=== PATIENT | female | born 1995 | race African-American/Black ===

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

== ENCOUNTER 2017-10-12 15:34 | Emergency (ER) | payer OTHER ==
[~2017-10-12] VITALS: Ht 160 cm; Wt 84.0 kg
[2017-10-12 15:40] VITALS: BP 138/84
--- NOTE | 2017-10-12 15:50 | NUR ---
22/F BIB SELF C/O LOWER ABDOMINAL PAIN & LOWER BACK DISCOMFORT 04/30 X3D, HEADACHE 8/10 TODAY.DENIES N/V/D; SKIN IS PINK/WARM/DRY; AAOX4 WITH EVEN AND STEADY GAIT; LUNGS CLEAR BL; HR EVEN AND REGULAR; PT DENIES ANY FEVER, CP, SOB, OR COUGH AT THIS TIME; PATIENT STATES PAIN OF 8/10 AT THIS TIME; VSS; PATIENT POSITIONED FOR COMFORT; HOB ELEVATED; BEDRAILS UP X2; BED DOWN. ER MD MADE AWARE OF PT STATUS.
--- NOTE | 2017-10-12 15:54 | NUR ---
Patient being evaluated by DR JEFF at bedside.
[2017-10-12] MEDS ORDERED: NACL 0.9% 1,000 ML IV SCH (16:00)
[2017-10-12] MEDS ORDERED: MORPHINE SULFATE 4 MG/ML SYR IVP ONE (16:00)
[2017-10-12] MEDS ORDERED: KETOROLAC 30 MG/ML VIAL IVP ONE (16:00)
[2017-10-12] MEDS ORDERED: ONDANSETRON 4 MG/2 ML VIAL IVP ONE (16:00)
[2017-10-12] MEDS ORDERED: FAMOTIDINE 20 MG/2 ML VIAL IVP ONE (16:00)
[2017-10-12 16:22] LABS: EOSINOPHILS # (AUTO) 0.1 K/uL (0-0.4); HEMATOCRIT 37.7 % (36-48); HEMOGLOBIN 12.5 g/dL (12.0-16.0); MEAN CORPUSCULAR HEMOGLOBIN 29 pg (27-31); MEAN CORPUSCULAR HGB CONC 33 g/dL (33-37); WHITE BLOOD COUNT (AUTO) 5.9 K/uL (4.5-11.0)
[2017-10-12 16:25] LABS: APPEARANCE,URINE CLEAR (CLEAR); BILIRUBIN,URINE NEGATIVE (NEGATIVE); BLOOD, URINE TRACE-I (NEGATIVE); COLOR,URINE YELLOW (YELLOW); LEUKOCYTE ESTERASE ,URINE NEGATIVE (NEGATIVE); NITRITE, URINE NEGATIVE (NEGATIVE); PH,URINE 6.5 (5.0-9.0); UGLUCOSE NEGATIVE (NEGATIVE)
[2017-10-12 16:30] LABS: BASOPHILS # (AUTO) 0.3 K/uL (0.00-0.22); LYMPHOCYTES # (AUTO) 1.4 K/uL (2.5-16.5); MEAN CORPUSCULAR VOLUME 87 fL (80-94); MONOCYTES # (AUTO) 0.4 K/uL (0.8-1.0); NEUTROPHILS # (AUTO) 3.7 K/uL (1.8-7.7); PLATELET COUNT (AUTO) 264 K/uL (140-450); RED BLOOD CELL COUNT(AUTO) 4.31 MIL/uL (4.20-5.40); RED CELL DISTRIBUTION WIDTH 12.3 % (11.6-13.7)
[2017-10-12 16:32] LABS: BASOPHILS % (AUTO) 1.7 % (0.0-2.0); LYMPHOCYTES % (AUTO) 32.4 % (20.5-51.1); MONOCYTES % (AUTO) 5.2 % (1.7-9.3); NEUTROPHILS % (AUTO) 59.7 % (42.2-75.2)
[2017-10-12 16:46] LABS: RBC,URINE NONE SEEN /HPF (0-5); WBC,URINE 0-5 (RARE) /HPF (0-5)
[2017-10-12 16:59] LABS: POTASSIUM 4.1 mmol/L (3.5-5.1)
[2017-10-12 17:00] LABS: ALBUMIN 3.7 g/dL (3.4-5.0); CARBON DIOXIDE 29.1 mmol/L (21-32); CREATININE 0.7 mg/dL (0.6-1.3); TOTAL BILIRUBIN 0.4 mg/dL (0.0-1.0)
--- NOTE | 2017-10-12 18:29 | NUR ---
Patient discharged with v/s stable. Written and verbal after care instructions given and explained. Patient alert, oriented and verbalized understanding of instructions. Ambulatory with steady gait. All questions addressed prior to discharge. ID band removed. Patient advised to follow up with PMD. Rx of MOTRIN, PEDCID & ZOFRAN given. Patient educated on indication of medication including possible reaction and side effects. Opportunity to ask questions provided and answered.
[2017-10-12 18:30] VITALS: BP 119/71
== END 2017-10-12 18:29 | disposition home or self-care (01) ==
LOC: MED 15:34
DX: N83.201 Unspecified ovarian cyst, right side (principal); R51 Headache
CPT/HCPCS: 36415; 76705; 76856; 80053; 81001; 81025; 82150; 83690; 84703; 85025; 96361; 96374; 96375; 99285; J1885; J2270; J2405; J3490; J7030; Q0092

== ENCOUNTER 2018-03-15 22:00 | Emergency (ER) | payer OTHER ==
[~2018-03-15] VITALS: Ht 160 cm; Wt 89.5 kg
[2018-03-15 22:21] VITALS: BP 135/78
--- NOTE | 2018-03-15 22:24 | NUR ---
TO LOBBY A/W BED, OTTO ERMS NOTED
--- NOTE | 2018-03-15 22:26 | NUR ---
Raymon taylor in [facility] - 03/15/18 at 2246 by CHIN PT TAKEN TO BED 8
--- NOTE | 2018-03-15 23:20 | NUR ---
PT AMBULATED TO ER BED 12
--- NOTE | 2018-03-15 23:25 | NUR ---
23 Y/O F W/C/O LOWER ABD PAIN, WITH PAINFUL URINATION WITH VAG D/C STARTED YESTERDAY WELL SORETHROAT. NO OTHER S/S OF DISTRESS NOTED.
[2018-03-15 23:34] LABS: APPEARANCE,URINE CLOUDY (CLEAR); BILIRUBIN,URINE NEGATIVE (NEGATIVE); BLOOD, URINE 2+ (NEGATIVE); COLOR,URINE YELLOW (YELLOW); LEUKOCYTE ESTERASE ,URINE 2+ (NEGATIVE); NITRITE, URINE NEGATIVE (NEGATIVE); UGLUCOSE NEGATIVE (NEGATIVE)
[2018-03-15 23:50] LABS: RBC,URINE 20-50 /HPF (0-5); WBC,URINE TOO MANY TO COUNT /HPF (0-5)
--- NOTE | 2018-03-16 00:38 | NUR ---
Dr. Winn at bedside for pelvic exam with female [employer] constable Veronika Soriano EMT
[2018-03-16] MEDS ORDERED: metroNIDAZOLE 250 MG TAB PO ONE (00:45)
[2018-03-16] MEDS ORDERED: ACETAMINOPHEN/CODEINE 300/30MG 1 TAB PO ONE (00:45)
[2018-03-16] MEDS ORDERED: cefTRIAXone 250 MG in LIDOCAINE MPF 1% - **ER/OR** 0.9 ML IM ONE (00:45)
[2018-03-16] MEDS ORDERED: AZITHROMYCIN 250 MG TAB PO ONE (00:45)
[2018-03-16] MEDS ORDERED: KETOROLAC 30 MG/ML VIAL IM ONE ×2 (01:55)
[2018-03-16] MEDS ORDERED: KETOROLAC 30 MG/ML VIAL ONE (01:59)
[2018-03-16 02:25] VITALS: BP 126/72
[2018-03-18 15:08] LABS: CHLAMYDIA TRACHOMATIS AMP DNA Negative (Negative)
--- NOTE | 2018-03-20 20:33 | NUR ---
Lab report received of positive GC result. Notified Dr Griffith. No orders received, pt was tx'd here. Called pt and informed her of result and gave her instructions to notify partners and not to have sex with them until 7 days after they've been treated and no sex for her for 7 day after her tx. Pt verbalized understanding.
== END 2018-03-16 02:25 | disposition home or self-care (01) ==
LOC: MED 22:00
DX: N39.0 Urinary tract infection, site not specified (principal); Z20.2 Contact with and (suspected) exposure to infections with a predominantly sexual mode of transmission
CPT/HCPCS: 36415; 81001; 81025; 87086; 87210; 87491; 96372; 99284; J0696; J1885; J2001

== ENCOUNTER 2018-12-06 07:18 | Emergency (ER) | payer OTHER ==
[~2018-12-06] VITALS: Ht 160 cm; Wt 99.8 kg
[2018-12-06 07:36] VITALS: BP 128/77
--- NOTE | 2018-12-06 07:43 | NUR ---
PT AMBULATED TO ER BED 09
--- NOTE | 2018-12-06 07:46 | NUR ---
BIB SELF, AAO X4, C/O SORE THROAT X 2 DAYS, PT STATES 8/10 SORE THROAT PAIN, NON-PRODUCTIVE COUGH. BACK OF THE THROAT APPEARS TO BE REDDENED, WITH WHITE CIRCULAR PATCHES ON THE BACK OF THE THROAT. EVEN AND UNLABORED BREATHING, NO SOB NOTED. BILATERAL LUNGS CLEAR. OXYGEN SATURATION AT 98% ROOM AIR. AFEBRILE. PATIENT POSITIONED FOR COMFORT; HOB ELEVATED; BEDRAILS UP X1; BED DOWN. ER MD MADE AWARE OF PT STATUS. PMH: DENIES
--- NOTE | 2018-12-06 07:46 | NUR ---
Note undone in EDM - 12/06/18 at 0805 by MEDSM BIB SELF C/O OF SORE THROAT X 2 DAYS, PT STATES 8/10 SORE THROAT PAIN, NON PRODUCTIVE COUGHING PATIENT PRESENTS TO ED WITH . PT STATES . DENIES N/V/D; SKIN IS PINK/WARM/DRY; AAOX4 WITH EVEN AND STEADY GAIT; LUNGS CLEAR BL; HR EVEN AND REGULAR; PT DENIES ANY FEVER, CP, SOB, OR COUGH AT THIS TIME; PATIENT STATES PAIN OF 0/10 AT THIS TIME; VSS; PATIENT POSITIONED FOR COMFORT; HOB ELEVATED; BEDRAILS UP X2; BED DOWN. ER MADE AWARE OF PT STATUS.
--- NOTE | 2018-12-06 07:50 | NUR ---
EDMD AT BEDSIDE PERFORMING MSE
[2018-12-06] MEDS ORDERED: CLINDAMYCIN 600 MG/4 ML VIAL IM ONE (07:55)
[2018-12-06] MEDS ORDERED: ALBUTEROL SULFATE/IPRATROPIU 3 ML SOL IH ONE (07:55)
[2018-12-06] MEDS ORDERED: DEXAMETHASONE 10 MG/ML VIAL IM ONE (07:55)
--- NOTE | 2018-12-06 08:20 | NUR ---
FLU SWAB AND URINE COLLECTED
[2018-12-06 09:49] VITALS: BP 120/75
--- NOTE | 2018-12-06 09:49 | NUR ---
Patient discharged with v/s stable. Written and verbal after care instructions given and explained. Patient alert, oriented and verbalized understanding of instructions. Ambulatory with steady gait. All questions addressed prior to discharge. ID band removed. Patient advised to follow up with PMD. Rx of clindamycin and prednisone given. Patient educated on indication of medication including possible reaction and side effects. Opportunity to ask questions provided and answered.
== END 2018-12-06 09:49 | disposition home or self-care (01) ==
LOC: MED 07:18
DX: J03.90 Acute tonsillitis, unspecified (principal)
CPT/HCPCS: 81025; 87804; 94640; 96372; 99283; J1100; J3490; J7620

== ENCOUNTER 2019-07-30 03:55 | Emergency (ER) | payer OTHER ==
[~2019-07-30] VITALS: Ht 160 cm; Wt 104.3 kg
[2019-07-30 03:55] VITALS: BP 138/79
--- NOTE | 2019-07-30 03:55 | NUR ---
TO BED # 04 AMBULATORY
[2019-07-30] MEDS ORDERED: KETOROLAC 30 MG/ML VIAL IM ONE (04:15)
[2019-07-30] MEDS ORDERED: DEXAMETHASONE 10 MG/ML VIAL PO ONE (04:15)
--- NOTE | 2019-07-30 04:15 | NUR ---
24 YO BIB SELF PRESENTS TO ED C/O 04/30 THROAT PAIN, THROAT SWELLING AND BODY ACHES X SINCE YESTERDAY. PT DENIES SOB BUT REPORTS PAINFUL SWALLOWING. PT DENIES FEVER BUT REPORTS CHILLS. DENIES NVD. PMH-- DENIES RX-- DENIES
--- NOTE | 2019-07-30 04:20 | NUR ---
DR. CLAUDIO EVALUATING AT BEDSIDE.
--- NOTE | 2019-07-30 04:30 | NUR ---
FLU/STREP SWABS COLLECTED AND WALKED DOWN TO LAB BY DERRICK.
[2019-07-30 05:06] VITALS: BP 138/79
--- NOTE | 2019-07-30 05:06 | NUR ---
Patient discharged with v/s stable. Written and verbal after care instructions given and explained. Patient alert, oriented and verbalized understanding of instructions. Ambulatory with steady gait. All questions addressed prior to discharge. ID band removed. Patient advised to follow up with PMD. Rx of Naprosyn, Tylenol with codeine and Amoxicillin given. Patient educated on indication of medication including possible reaction and side effects. Opportunity to ask questions provided and answered.
== END 2019-07-30 05:06 | disposition home or self-care (01) ==
LOC: MED 03:55
DX: J02.9 Acute pharyngitis, unspecified (principal)
CPT/HCPCS: 87081; 96372; 99283; J1100; J1885

== ENCOUNTER 2020-06-28 11:48 | Emergency (ER) | payer OTHER ==
[~2020-06-28] VITALS: Ht 160 cm; Wt 108.4 kg
[2020-06-28 11:51] VITALS: BP 123/84
[2020-06-28] MEDS ORDERED: DEXAMETHASONE 10 MG/ML VIAL IM ONE (12:00)
[2020-06-28] MEDS ORDERED: PENICILLIN G BENZATHINE C-R 1.2 MU/2 ML SYR IM ONE (12:00)
[2020-06-28 12:55] VITALS: BP 123/84
== END 2020-06-28 12:55 | disposition home or self-care (01) ==
LOC: MED 11:48
DX: J02.0 Streptococcal pharyngitis (principal)
CPT/HCPCS: 87081; 96372; 99284; J0558; J1100

== ENCOUNTER 2021-08-15 02:10 | Emergency (ER) | payer OTHER ==
[~2021-08-15] VITALS: Ht 160 cm; Wt 109.8 kg
[2021-08-15 02:17] VITALS: BP 140/78
--- NOTE | 2021-08-15 02:22 | NUR ---
patient ambulatory to bed 11 with urine cup for collection
--- NOTE | 2021-08-15 02:30 | NUR ---
PT PRESENTS TO ED WITH C/O LOWER ABDOMINAL PAIN. PT REPORTS 10/10 ACHING, CRAMPING PAIN. PT STATES PAIN IS EXACERBATED WITH URINATION. PATIENT DENIES OTHER MEDICAL HX.
[2021-08-15] MEDS ORDERED: IBUPROFEN 600 MG TAB PO ONE (02:50)
[2021-08-15 02:52] LABS: APPEARANCE,URINE SL CLOUDY (CLEAR); BILIRUBIN,URINE NEGATIVE (NEGATIVE); BLOOD, URINE TRACE-I (NEGATIVE); COLOR,URINE YELLOW (YELLOW); LEUKOCYTE ESTERASE ,URINE TRACE (NEGATIVE); NITRITE, URINE NEGATIVE (NEGATIVE); UGLUCOSE NEGATIVE (NEGATIVE)
[2021-08-15 03:01] LABS: RBC,URINE 0-5 /HPF (0-5)
--- NOTE | 2021-08-15 03:28 | NUR ---
Ultrasound at bedside.
[2021-08-15 04:15] VITALS: BP 148/78
[2021-08-15] MEDS ORDERED: CEPH250C16 PO (05:08)
[2021-08-15] MEDS ORDERED: IBUP-2213 PO (05:31)
== END 2021-08-15 05:40 | disposition home or self-care (01) ==
LOC: MED 02:10
DX: N39.0 Urinary tract infection, site not specified (principal); Z79.899 Other long term (current) drug therapy
CPT/HCPCS: 76856; 81001; 81025; 87086; 93976; 99284; Q0092

== ENCOUNTER 2021-12-17 07:46 | Emergency (ER) | payer OTHER ==
[~2021-12-17] VITALS: Ht 167.6 cm; Wt 95.3 kg
[~2021-12-17 07:46] MED LIST changes: -ANTIBIOTIC; -BACTRIM DS 8001 TA1 PO; +CEPH250C16 PO; -CLARITIN10 M1 PO; +IBUP-2213 PO; -MOTRIN
[2021-12-17 07:54] VITALS: BP 137/56
--- NOTE | 2021-12-17 07:58 | NUR ---
PT AMBULATED TO BED, STEADY GAIT
--- NOTE | 2021-12-17 08:22 | NUR ---
PATIENT HAS A SORE THROAT, FATIGUE AND BODY ACHE, DENIES ANY OTHER SYMPTOMS. PATIENT STATES SORE THROAT WOKE HER UP THIS MORNING
--- NOTE | 2021-12-17 08:35 | NUR ---
DOCTOR MOHSEN AT PATIENT BEDSIDE
[2021-12-17] MEDS ORDERED: PENICILLIN G BENZATHINE L-A 1.2 MU/2 ML SYR IM ONE (08:40)
[2021-12-17] MEDS ORDERED: KETOROLAC 60 MG/2 ML VIAL IM ONE (08:40)
[2021-12-17] MEDS ORDERED: PRED20TA5 PO (09:11)
[2021-12-17] MEDS ORDERED: IBUP-2213 PO (09:11)
--- NOTE | 2021-12-17 09:21 | NUR ---
Patient discharged with v/s stable. Written and verbal after care instructions given and explained. Patient alert, oriented and verbalized understanding of instructions. Ambulatory with steady gait. All questions addressed prior to discharge. ID band removed. Patient advised to follow up with PMD. Rx of PREDNISONE, KEFLEX, AND IBUPROFEN given. Patient educated on indication of medication including possible reaction and side effects. Opportunity to ask questions provided and answered.
[2021-12-17 09:24] VITALS: BP 137/56
== END 2021-12-17 09:24 | disposition home or self-care (01) ==
LOC: MED 07:46
DX: J02.0 Streptococcal pharyngitis (principal); Z79.1 Long term (current) use of non-steroidal anti-inflammatories (NSAID); Z79.2 Long term (current) use of antibiotics
CPT/HCPCS: 96372; 99284; J0561; J1885

== ENCOUNTER 2022-07-08 16:39 | Emergency (ER) | payer OTHER ==
[~2022-07-08] VITALS: Ht 160 cm; Wt 108.9 kg
[~2022-07-08 16:39] MED LIST changes: +PRED20TA5 PO
[2022-07-08 16:42] VITALS: BP 136/86
--- NOTE | 2022-07-08 16:50 | NUR ---
PT AMB TO BED 2.
--- NOTE | 2022-07-08 16:53 | NUR ---
in [facility] bibs for flu like sx: cough, headache, nausea, fever, sorethroat, chest pain x 1 week. no sob, vomit, chills. aao x4. reps even and nonlabored. vss. ambulatory
--- NOTE | 2022-07-08 17:24 | NUR ---
swabbed for covid chance and strep and given to lab
[2022-07-08] MEDS ORDERED: IBUP-2213 PO (18:00)
[2022-07-08] MEDS ORDERED: ROBAC PO (18:00)
[2022-07-08] MEDS ORDERED: ALBU0.0912 IH (18:00)
--- NOTE | 2022-07-08 18:27 | NUR ---
Patient discharged with v/s stable. Written and verbal after care instructions given and explained. Patient alert, oriented and verbalized understanding of instructions. Ambulatory with steady gait. All questions addressed prior to discharge. ID band removed. Patient advised to follow up with PMD. Rx of motrin, cough medicine, given. Patient educated on indication of medication including possible reaction and side effects. Opportunity to ask questions provided and answered.
[2022-07-08 18:28] VITALS: BP 136/70
[2022-07-08] MEDS ORDERED: AMOX500C25 PO (18:50)
== END 2022-07-08 18:27 | disposition home or self-care (01) ==
LOC: MED 16:39
DX: B34.9 Viral infection, unspecified (principal); Z20.822 Contact with and (suspected) exposure to COVID-19; R05.9 Cough, unspecified; M79.10 Myalgia, unspecified site; R50.9 Fever, unspecified; R07.9 Chest pain, unspecified; F12.90 Cannabis use, unspecified, uncomplicated; Z79.899 Other long term (current) drug therapy
CPT/HCPCS: 71045; 81002; 81025; 87081; 87426; 93005; 99285; Q0092

== ENCOUNTER 2022-11-12 11:38 | Emergency (ER) | payer OTHER ==
[~2022-11-12] VITALS: Ht 167.6 cm; Wt 88.5 kg
[~2022-11-12 11:38] MED LIST changes: +ALBU0.0912 IH; +AMOX500C25 PO; +ROBAC PO
[2022-11-12 11:48] VITALS: BP 118/67
[2022-11-12] MEDS ORDERED: OFLO5SOL27 RIGHT EAR (13:10)
[2022-11-12] MEDS ORDERED: IBUP-1842 PO (13:10)
--- NOTE | 2022-11-12 13:40 | NUR ---
Patient discharged with v/s stable. Written and verbal after care instructions given and explained. Patient verbalized understanding. Ambulatory with steady gait. All questions addressed prior to discharge. Advised to follow up with PMD.
== END 2022-11-12 13:35 | disposition home or self-care (01) ==
LOC: MED 11:38
DX: T16.1XXA Foreign body in right ear, initial encounter (principal); H60.91 Unspecified otitis externa, right ear; Z79.1 Long term (current) use of non-steroidal anti-inflammatories (NSAID); Z79.2 Long term (current) use of antibiotics; Z79.899 Other long term (current) drug therapy; X58.XXXA Exposure to other specified factors, initial encounter; Y92.89 Other specified places as the place of occurrence of the external cause; Y93.89 Activity, other specified; Y99.8 Other external cause status
CPT/HCPCS: 69200; 99284

== ENCOUNTER 2023-08-17 08:05 | Emergency (ER) | payer OTHER ==
[~2023-08-17] VITALS: Ht 167.6 cm; Wt 72.6 kg
[~2023-08-17 08:05] MED LIST changes: +IBUP-1842 PO; +OFLO5SOL27 RIGHT EAR
[2023-08-17 08:52] VITALS: BP 132/73; PULSE 18; RESP 20; TEMP 99; O2SAT 98
[2023-08-17] MEDS ORDERED: NAPR-54 PO (09:04)
[2023-08-17] MEDS ORDERED: NIRM1TAB PO (09:04)
[2023-08-17 09:33] LABS: FLU A ANTIGEN negative (NEGATIVE); FLU B ANTIGEN negative (NEGATIVE)
== END 2023-08-17 09:43 | disposition home or self-care (01) ==
LOC: MED 08:05
DX: Z20.822 Contact with and (suspected) exposure to COVID-19 (principal); Z79.899 Other long term (current) drug therapy; B34.9 Viral infection, unspecified
CPT/HCPCS: 99283

== ENCOUNTER 2024-06-05 09:23 | Emergency (ER) | payer OTHER ==
[~2024-06-05] VITALS: Ht 162.6 cm; Wt 117.9 kg
[~2024-06-05 09:23] MED LIST changes: +NAPR-337 PO; +NIRM1TAB PO
[2024-06-05 09:29] VITALS: BP 130/82; PULSE 84; RESP 18; TEMP 97.6; O2SAT 99
[2024-06-05] MEDS ORDERED: PSEU-370 PO (09:47)
== END 2024-06-05 10:02 | disposition home or self-care (01) ==
LOC: MED 09:23
DX: H92.02 Otalgia, left ear (principal); R03.0 Elevated blood-pressure reading, without diagnosis of hypertension; Z79.899 Other long term (current) drug therapy
CPT/HCPCS: 99282